=== PATIENT | male | born 1955 | race Two or more races ===

== ENCOUNTER 2024-12-12 21:22 | Inpatient (IN) | payer OTHER, MEDICAID ==
[~2024-12-12] VITALS: Ht 180.3 cm; Wt 70.6 kg
[2024-12-12 23:10] VITALS: BP 102/69; PULSE 87; RESP 18; TEMP 97.9; O2SAT 95
[2024-12-13] VITALS (9 sets, daily range): BP systolic 102–113; BP diastolic 62–85; PULSE 71–111; RESP 15–18; TEMP 97.4–99.3; O2SAT 91–96
[2024-12-13] MEDS ORDERED: LORazepam 2MG/ML-1ML VIAL IV PRN (11:45)
[2024-12-13] MEDS: HYDROcodone-ACET 5/325MG TAB PO PRN (11:50)
[2024-12-13 12:27] LABS: Hematocrit 43.3 % (41.0-53.0); Hemoglobin 14.3 g/dL (13.5-17.5); Mean Corpuscular Hemoglobin 32.1 pg (28.0-32.0); Mean Corpuscular Volume 97.5 fL (80.0-100.0); Nucleated Red Blood Cells % 0.0 %
[2024-12-13 13:39] LABS: Alanine Aminotransferase 21 U/L (7-40); Albumin 3.6 g/dL (3.2-4.8); Alkaline Phosphatase 47 U/L (46-116); Anion Gap 11 (5-15); BUN/Creatinine Ratio 6.3 (10.0-20.0); Bilirubin, Total 1.0 mg/dL (0.2-1.0); Carbon Dioxide 21 mmol/L (20-31); Potassium 4.0 mmol/L (3.5-5.1); Sodium 141 mmol/L (136-145); Total Protein 5.9 g/dL (5.7-8.2)
[2024-12-13 13:43] LABS: Blood Urea Nitrogen 6 mg/dL (9-23); Calcium 8.6 mg/dL (8.7-10.4); Chloride 109 mmol/L (98-107); Glucose 110 mg/dL (74-106)
[2024-12-13] MEDS ORDERED: NITROGLYCERIN 0.4 MG SL TAB SL PRN (17:00)
[2024-12-13] MEDS ORDERED: DOCUSATE SOD 100 MG CAP PO PRN (17:00)
[2024-12-13] MEDS ORDERED: MORPHINE SULFATE INJ 2 MG/ml SYRG IV PRN ×2 (17:00)
[2024-12-13] MEDS ORDERED: ACETAMINOPHEN 325 MG TAB PO PRN (17:00)
[2024-12-13] MEDS ORDERED: ONDANSETRON HCL 4 MG/2 ML VIAL IV PRN (17:00)
[2024-12-13] MEDS ORDERED: HYDROcodone-ACET 5/325MG TAB PO PRN (17:00)
[2024-12-13] MEDS ORDERED: HYDROcodone-ACET 10/325MG TAB PO PRN (17:15)
[2024-12-13] MEDS: RIVAROXABAN 20 MG TAB PO SCH (17:36)
[2024-12-13] MEDS: SODIUM CHLORIDE 0.9% 1,000 ML IV SCH (17:57)
[2024-12-14] VITALS (7 sets, daily range): BP systolic 112–126; BP diastolic 60–100; PULSE 70–96; RESP 15–20; TEMP 97.7–98.3; O2SAT 93–100
[2024-12-14 07:14] LABS: Hematocrit 37.5 % (41.0-53.0); Hemoglobin 13.2 g/dL (13.5-17.5); Mean Corpuscular Hemoglobin 32.9 pg (28.0-32.0); Mean Corpuscular Volume 93.6 fL (80.0-100.0); Nucleated Red Blood Cells % 0.1 %
[2024-12-14 07:25] LABS: Alanine Aminotransferase 19 U/L (7-40); Albumin 3.4 g/dL (3.2-4.8); Anion Gap 7 (5-15); BUN/Creatinine Ratio 9.1 (10.0-20.0); Bilirubin, Total 1.0 mg/dL (0.2-1.0); Carbon Dioxide 27 mmol/L (20-31); Glucose 92 mg/dL (74-106); Potassium 4.1 mmol/L (3.5-5.1); Sodium 144 mmol/L (136-145)
[2024-12-14 07:26] LABS: Alkaline Phosphatase 43 U/L (46-116); Blood Urea Nitrogen 9 mg/dL (9-23); Calcium 8.7 mg/dL (8.7-10.4); Chloride 110 mmol/L (98-107); Total Protein 5.4 g/dL (5.7-8.2)
[2024-12-14] MEDS: LEVOTHYROXINE SODIUM 50 MCG TAB PO SCH (09:12)
[2024-12-14] MEDS: METOPROLOL SUCCINATE XL 50 MG TAB PO SCH (09:12)
[2024-12-14] MEDS: ENOXAPARIN SOD 40 MG/0.4 ML SYRINGE SC SCH (09:13)
--- NOTE | 2024-12-14 19:47 | DVHINCON2 ---
Date of service: Dec 14, 2024 Referring Physician Reason for Consultation Seizure History of Present Illness Mr. Bang Estrada has a another chart in the [facility] [id number] Mr. Estrada is a right-handed male with a history of hypertension, hypothyroid disease, atrial fibrillation, chronic low back pain. He was transferred to the [facility] from [facility] on 12/12/24 with a chief complaint of seizure activity. At this time, he is alert and fully oriented, he he claimed that he woke up in the [facility], he did not know why and how he came to the [facility] I saw him on 06/19/2024 for seizure He tells me he woke up in the [facility], with injury to the right elbow, he was said to have seizure attack, he reported this was the 1st seizure since 06/2024, he takes Depakote 250 mg two capsules b.i.d. He has grand mal seizure since 2021, I saw him in office Keppra causes mood swinging, no answer. [id number], no answer Reports from my office EEG, 06/01/23 Normal EEG, 05/23/24: Normal 61-minute EEG CT head 04/04/23: Unremarkable CT head, 06/18/2024: No CT evidence of acute intracranial abnormality [facility] Plasma alcohol, 12/12/2024: Normal CT head, cervical spine, 11/25/2024: Chronic findings without CT evidence of acute intracranial or cervical spine pathology CBC, 12/13/2024: Unremarkable CMP, 12/13/2024: Unremarkable Past Medical History Hypertension, Depression, Thyroid gland problems, A fib Past Surgical History Three hernias, Left Testicle, pacemaker insertion (2022) Family History: Cardiovascular disease G8 FATHER, Seizure disorder G8 MOTHER, Family History Anxiety, Seizure, heart disease, Alcohol Social History Alcohol abuse, previous No history of drug abuse Smoking Status: Smoker He has stopped driving Allergies: Coded Allergies: NO KNOWN ALLERGIES (Unverified , 12/13/24) Home Meds Reported Medications Metoprolol Succinate (Metoprolol Succinate Er) 25 Mg Tab, 1 TAB PO DAILY, #30 TAB 5 Refills 12/13/24 Rivaroxaban (XARELTO) 20 Mg Tab, 1 TAB PO DAILY, #30 TAB 11 Refills 12/13/24 Divalproex Sodium (Depakote) 250 Mg Tab, 1 TAB PO BID, #60 TAB 2 Refills 12/13/24 Levothyroxine Sodium (SYNTHROID TABLET) 50 Mcg Tb, 1 TAB PO DAILY, #30 TAB 5 Refills 12/13/24 Current Medications Current Medications Medications (Trade) Dose Ordered Sig/Lukasz Route PRN Reason Start Time Stop Time Status Last Admin Divalproex Sodium (Depakote "Dr" Tablet) 250 mg BID PO 12/13/24 22:00 12/14/24 09:13 Levothyroxine Sodium (Synthroid Tablet) 50 mcg DAILY PO 12/14/24 10:00 12/14/24 09:12 Metoprolol Succinate (Toprol Xl) 25 mg DAILY PO 12/14/24 10:00 12/14/24 09:12 Enoxaparin Sodium (Lovenox) 40 mg DAILY SC 12/14/24 10:00 Hold Review of Systems As above, the other systems are negative Vital Signs Vital Signs Date Time Temp Pulse Resp B/P (MAP) Pulse Ox O2 Delivery O2 Flow Rate FiO2 12/14/24 17:17 97.9 96 20 119/75 (90) 94 97.9 12/14/24 08:00 Room Air* 0 21 Physical Exam GENERAL EXAM: General: the patient is well developed and nourished. No acute distress. HEENT: Normocephalic, neck is supple, no carotid bruits. No mass. RESPIRATORY: Normal respiratory effort with symmetrical lung expansion. Lungs clear to auscultation. CARDIOVASCULAR: Regular rate and rhythm with no murmurs. S1, S2. ABDOMEN: Soft, nontender, normal bowel sound NEUROLOGICAL: MENTAL STATUS: Awake and alert. Oriented to person, place, time and general circumstances. Able to give personal history. SPEECH, LANGUAGE, HIGHER CORTICAL FUNCTION: no aphasia or dysathria. CRANIAL NERVES: #2: Intact visual quarles to confrontation. The optic discs were sharp. #3,4,6: Pupils are equal, round and reactive. EOMs full and conjugate. #5: Facial sensation intact in all three divisions bilaterally. Mandibular strength intact. #7: Facial muscles symmetrical and strength intact. #8: Hearing grossly normal to voice. #9,10: Uvula and soft palate rise in the midline. Swallow and voice are normal. #11: Trapezius and sternomastoid strength intact bilaterally. #12: Tongue midline. No fasciculations or atrophy. SENSATION: Sensation to touch and pinprick is normal. MOTOR: Normal tone in the upper and lower extremity. Normal muscle bulk. No fasciculations. No abnormal movements or posturing. Muscle strength of the major groups in the upper extremities is 5/5. Muscle strength of the major groups in the lower extremities is 5/5. REFLEXES: Deep tendon reflexes nare symmetrical. No pathological reflexes. CEREBELLAR/COORDINATION: Finger to nose and heel to mazariegos are normal bilaterally. GAIT/STATION: deferred. Labs/Diagnostic Data Labs Test 12/14/24 06:24 Range/Units White Blood Count 6.2 # 4.4-10.8 10^3/uL Red Blood Count 4.01 L 4.5-5.90 10^6/uL Hemoglobin 13.2 L 13.5-17.5 g/dL Hematocrit 37.5 #L 41.0-53.0 % Mean Corpuscular Volume 93.6 80.0-100.0 fL Mean Corpuscular Hemoglobin 32.9 H 28.0-32.0 pg Mean Corpuscular Hemoglobin Concent 35.2 32.0-36.0 g/dL Red Cell Distribution Width 12.6 11.8-14.3 % Platelet Count 155 140-450 10^3/uL Mean Platelet Volume 7.9 6.9-10.8 fL Neutrophils (%) (Auto) 65.2 37.0-80.0 % Lymphocytes (%) (Auto) 17.5 10.0-50.0 % Monocytes (%) (Auto) 14.5 H 0.0-12.0 % Eosinophils (%) (Auto) 2.4 0.0-7.0 % Basophils (%) (Auto) 0.4 0.0-2.0 % Neutrophils # (Auto) 4.1 1.6-8.6 10 ^3/uL Lymphocytes # (Auto) 1.1 0.4-5.4 10 ^3/uL Monocytes # (Auto) 0.9 0-1.3 10 ^3/uL Eosinophils # (Auto) 0.1 0-0.8 10 ^3/uL Basophils # (Auto) 0 0-0.2 10 ^3/uL Nucleated Red Blood Cells 0.1 % Sodium Level 144 136-145 mmol/L Potassium Level 4.1 3.5-5.1 mmol/L Chloride Level 110 H 98-107 mmol/L Carbon Dioxide Level 27 20-31 mmol/L Anion Gap 7 5-15 Blood Urea Nitrogen 9 9-23 mg/dL Creatinine 0.99 0.700-1.30 mg/dL Glomerular Filtration Rate Calc 82 >90 mL/min BUN/Creatinine Ratio 9.1 L 10.0-20.0 Serum Glucose 92 74-106 mg/dL Calcium Level 8.7 8.7-10.4 mg/dL Total Bilirubin 1.0 0.2-1.0 mg/dL Aspartate Amino Transferase (AST) 25 13-40 U/L Alanine Aminotransferase (ALT) 19 7-40 U/L Alkaline Phosphatase 43 L 46-116 U/L Total Protein 5.4 L 5.7-8.2 g/dL Albumin 3.4 3.2-4.8 g/dL Assessment Grand mal seizure Seizure breakthrough Plan/Recommendation Monitoring Supportive treatment Telemetry Increase the Keppra to 750 mg b[address]i.d. He does not drive DVT prophylax GI prophylax More recommendation per clinical course Progress: Poor This medical document was created using an electronic medical record system with [employer] computerized dictation system. Although this document has been carefully reviewed, there may still be some phonetic and typographical errors. These areas are purely typographical due to imperfections of the software programs, and do not reflect any compromise in the patient's medical care. Plan discussed with: Patient, Other JS LORD MD Dec 14, 2024 19:47
[2024-12-15] VITALS (7 sets, daily range): BP systolic 112–133; BP diastolic 81–88; PULSE 68–102; RESP 17–20; TEMP 97.5–98.9; O2SAT 93–100
--- NOTE | 2024-12-15 12:46 | DVHHP2 ---
Admitting Diagnosis: seizure History of Present Illness HPI Mr. Estrada is a right-handed male with a history of hypertension, hypothyroid disease, atrial fibrillation, chronic low back pain. He was transferred to the [facility] from [facility] on 12/12/24 with a chief complaint of seizure activity. At this time, he is alert and fully oriented, he he claimed that he woke up in the [facility], he did not know why and how he came to the [facility] He tells me he woke up in the [facility], with injury to the right elbow, he was said to have seizure attack, he reported this was the 1st seizure since 06/2024, he takes Depakote 250 mg two capsules b.i.d. He has grand mal seizure since 2021, I saw him in office Keppra causes mood swinging, Home Meds Reported Medications Metoprolol Succinate (Metoprolol Succinate Er) 25 Mg Tab, 1 TAB PO DAILY, #30 TAB 5 Refills 12/13/24 Rivaroxaban (XARELTO) 20 Mg Tab, 1 TAB PO DAILY, #30 TAB 11 Refills 12/13/24 Divalproex Sodium (Depakote) 250 Mg Tab, 1 TAB PO BID, #60 TAB 2 Refills 12/13/24 Levothyroxine Sodium (SYNTHROID TABLET) 50 Mcg Tb, 1 TAB PO DAILY, #30 TAB 5 Refills 12/13/24 Past Medical History Patient Family History: Cardiovascular disease G8 FATHER, Seizure disorder G8 MOTHER, Review of Systems Constitutional: No symptom reported Pulmonary/Respiratory: No symptom reported Cardiovascular: No symptom reported Gastrointestinal: No symptom reported Genitourinary: No symptom reported H&P Exam Vital Signs Vital Signs Date Time Temp Pulse Resp B/P (MAP) Pulse Ox O2 Delivery O2 Flow Rate FiO2 12/15/24 08:57 68 133/77 12/15/24 08:47 98.8 20 97 98.8 12/15/24 08:00 Room Air* 0 21 General Appeara: Well developed Head Exam: Normal inspection Neck Exam: Normal inspection Abdominal Exam: Normal bowel sounds Pelvic Exam: Not done SEPSIS Sepsis Screen Vital Signs Date Time Temp Pulse Resp B/P (MAP) Pulse Ox O2 Delivery O2 Flow Rate FiO2 12/15/24 08:57 68 133/77 12/15/24 08:47 98.8 98 20 112/87 (95) 97 98.8 12/15/24 08:00 68 96 Room Air* 0 21 12/15/24 05:00 97.5 89 18 114/86 (95) 98 97.5 Labs/Xrays Labs Test 12/14/24 20:41 12/14/24 06:24 Range/Units Valproic Acid Level 20.5 L 50-100 ug/mL White Blood Count 6.2 # 4.4-10.8 10^3/uL Red Blood Count 4.01 L 4.5-5.90 10^6/uL Hemoglobin 13.2 L 13.5-17.5 g/dL Hematocrit 37.5 #L 41.0-53.0 % Mean Corpuscular Volume 93.6 80.0-100.0 fL Mean Corpuscular Hemoglobin 32.9 H 28.0-32.0 pg Mean Corpuscular Hemoglobin Concent 35.2 32.0-36.0 g/dL Red Cell Distribution Width 12.6 11.8-14.3 % Platelet Count 155 140-450 10^3/uL Mean Platelet Volume 7.9 6.9-10.8 fL Neutrophils (%) (Auto) 65.2 37.0-80.0 % Lymphocytes (%) (Auto) 17.5 10.0-50.0 % Monocytes (%) (Auto) 14.5 H 0.0-12.0 % Eosinophils (%) (Auto) 2.4 0.0-7.0 % Basophils (%) (Auto) 0.4 0.0-2.0 % Neutrophils # (Auto) 4.1 1.6-8.6 10 ^3/uL Lymphocytes # (Auto) 1.1 0.4-5.4 10 ^3/uL Monocytes # (Auto) 0.9 0-1.3 10 ^3/uL Eosinophils # (Auto) 0.1 0-0.8 10 ^3/uL Basophils # (Auto) 0 0-0.2 10 ^3/uL Nucleated Red Blood Cells 0.1 % Sodium Level 144 136-145 mmol/L Potassium Level 4.1 3.5-5.1 mmol/L Chloride Level 110 H 98-107 mmol/L Carbon Dioxide Level 27 20-31 mmol/L Anion Gap 7 5-15 Blood Urea Nitrogen 9 9-23 mg/dL Creatinine 0.99 0.700-1.30 mg/dL Glomerular Filtration Rate Calc 82 >90 mL/min BUN/Creatinine Ratio 9.1 L 10.0-20.0 Serum Glucose 92 74-106 mg/dL Calcium Level 8.7 8.7-10.4 mg/dL Total Bilirubin 1.0 0.2-1.0 mg/dL Aspartate Amino Transferase (AST) 25 13-40 U/L Alanine Aminotransferase (ALT) 19 7-40 U/L Alkaline Phosphatase 43 L 46-116 U/L Total Protein 5.4 L 5.7-8.2 g/dL Albumin 3.4 3.2-4.8 g/dL Assessment/Plan Primary Diagnosis recurrent seizure protein-calorie malnutrition hypothyroidism A-fib HTN admitted to mes/surg consult to neurology fall risk time: >45 minutes Plan discussed with: Patient Code Visit Code Visit Total Time (mins): 45 Date of Service: Dec 13, 2024 Billing Provider: VI DE DO Common Visit Codes: [id number] INP/OBS CARE (HIGH) VI DE DO Dec 15, 2024 12:46
--- NOTE | 2024-12-15 12:47 | DVHPN2 ---
Reviewed: Care Plan, H&P, Labs, Medications, Previous Orders, Radiology Changes from previous H/P or p: No Changes General: Per HPI Objective Vitals Vital Signs Date Time Temp Pulse Resp B/P (MAP) Pulse Ox O2 Delivery O2 Flow Rate FiO2 12/15/24 08:57 68 133/77 12/15/24 08:47 98.8 20 97 98.8 12/15/24 08:00 Room Air* 0 21 Intake/Output Intake and Output 12/15/24 07:00 Intake Total 1855 ml Balance 1855 ml Intake Oral 1255 ml IV Total 600 ml # Voids 10 General Appearance: Alert, Oriented X3, Cooperative HEENT: Atraumatic Lungs: Clear to auscultation Medications Current Medications Medications Dose Ordered Sig/Lukasz Route Start Time Stop Time Status Last Admin Dose Admin Acetaminophen/ Hydrocodone Bitart 1 tab Q6HPRN PRN PO 12/13/24 11:00 12/14/24 21:53 1 TAB Lorazepam 1 mg Q5MINP PRN IV 12/13/24 11:45 Levothyroxine Sodium 50 mcg DAILY PO 12/14/24 10:00 12/15/24 08:57 50 MCG Rivaroxaban 20 mg QPM PO 12/13/24 18:00 12/14/24 18:07 20 MG Metoprolol Succinate 25 mg DAILY PO 12/14/24 10:00 12/15/24 08:57 25 MG Sodium Chloride 1,000 ml @ 60 mls/hr [id number] IV 12/13/24 17:00 12/15/24 04:49 60 MLS/HR Acetaminophen/ Hydrocodone Bitart 1 tab Q4HP PRN PO 12/13/24 17:00 UNV Ondansetron HCl 4 mg Q4HP PRN IV 12/13/24 17:00 Docusate Sodium 100 mg BIDPRN PRN PO 12/13/24 17:00 Enoxaparin Sodium 40 mg DAILY SC 12/14/24 10:00 Hold Acetaminophen 650 mg Q6HP PRN PO 12/13/24 17:00 Morphine Sulfate 2 mg Q4HPRN PRN IV 12/13/24 17:00 Nitroglycerin 0.4 mg Q5MINP PRN SL 12/13/24 17:00 Morphine Sulfate 2 mg Q30M PRN IV 12/13/24 17:00 Divalproex Sodium 750 mg BID PO 12/14/24 20:30 12/15/24 08:57 750 MG Laboratory Results Laboratory Tests 12/14/24 06:24 Labs and/or images reviewed: Labs reviewed by me, Image(s) reviewed by me Assessment/Plan Assessment/Plan recurrent seizure protein-calorie malnutrition hypothyroidism A-fib HTN admitted to mes/surg consult to neurology fall risk time: >45 minutes Plan discussed with: Patient My Orders Orders - VI DE DO Procedure Category Date Status Time Cleanse Wound With LAKISHA 12/14/24 In Process Wound Clean 13:20 * Dietary Consult CONS 12/14/24 Transmitted 17:14 Date of Service: Dec 14, 2024 Billing Provider: VI DE DO Common Visit Codes: [id number] INP/OBS CARE(HIGH) VI DE DO Dec 15, 2024 12:47
--- NOTE | 2024-12-15 12:54 | DVHDS2 ---
Discharge Summary Date of Admission Dec 12, 2024 at 23:12 Date of Discharge: Dec 15, 2024 Labs/Diagnostic Data: Laboratory Results Test 12/14/24 20:41 12/14/24 06:24 Valproic Acid Level 20.5 ug/mL (50-100) White Blood Count 6.2 10^3/uL (4.4-10.8) Red Blood Count 4.01 10^6/uL (4.5-5.90) Hemoglobin 13.2 g/dL (13.5-17.5) Hematocrit 37.5 % (41.0-53.0) Mean Corpuscular Volume 93.6 fL (80.0-100.0) Mean Corpuscular Hemoglobin 32.9 pg (28.0-32.0) Mean Corpuscular Hemoglobin Concent 35.2 g/dL (32.0-36.0) Red Cell Distribution Width 12.6 % (11.8-14.3) Platelet Count 155 10^3/uL (140-450) Mean Platelet Volume 7.9 fL (6.9-10.8) Neutrophils (%) (Auto) 65.2 % (37.0-80.0) Lymphocytes (%) (Auto) 17.5 % (10.0-50.0) Monocytes (%) (Auto) 14.5 % (0.0-12.0) Eosinophils (%) (Auto) 2.4 % (0.0-7.0) Basophils (%) (Auto) 0.4 % (0.0-2.0) Neutrophils # (Auto) 4.1 10 ^3/uL (1.6-8.6) Lymphocytes # (Auto) 1.1 10 ^3/uL (0.4-5.4) Monocytes # (Auto) 0.9 10 ^3/uL (0-1.3) Eosinophils # (Auto) 0.1 10 ^3/uL (0-0.8) Basophils # (Auto) 0 10 ^3/uL (0-0.2) Nucleated Red Blood Cells 0.1 % Sodium Level 144 mmol/L (136-145) Potassium Level 4.1 mmol/L (3.5-5.1) Chloride Level 110 mmol/L (98-107) Carbon Dioxide Level 27 mmol/L (20-31) Anion Gap 7 (5-15) Blood Urea Nitrogen 9 mg/dL (9-23) Creatinine 0.99 mg/dL (0.700-1.30) Glomerular Filtration Rate Calc 82 mL/min (>90) BUN/Creatinine Ratio 9.1 (10.0-20.0) Serum Glucose 92 mg/dL (74-106) Calcium Level 8.7 mg/dL (8.7-10.4) Total Bilirubin 1.0 mg/dL (0.2-1.0) Aspartate Amino Transferase (AST) 25 U/L (13-40) Alanine Aminotransferase (ALT) 19 U/L (7-40) Alkaline Phosphatase 43 U/L (46-116) Total Protein 5.4 g/dL (5.7-8.2) Albumin 3.4 g/dL (3.2-4.8) Other Laboratory Tests 12/14/24 06:24 Brief Hx & Hospital Course: recurrent seizure protein-calorie malnutrition hypothyroidism A-fib HTN admitted to mes/surg consult to neurology fall risk d/c to home with keppra Condition at Discharge: Fair Final Diagnosis/Problems List see above Discharge Disposition: Home Discharge Instruct/Medications Diet: Cardiac 2g Na,low cholest Activity: No Restrictions, As Tolerated Scheduled Divalproex Sodium (Depakote), 1 TAB PO BID, (Reported) Divalproex Sodium (Divalproex Sodium Dr), 750 MG PO BID Levothyroxine Sodium (Synthroid Tablet), 1 TAB PO DAILY, (Reported) Metoprolol Succinate (Metoprolol Succinate Er), 1 TAB PO DAILY, (Reported) Rivaroxaban (Xarelto), 1 TAB PO DAILY, (Reported) Discharge Statement: "Patient was advised to return to the ER or call 911 if any headaches, dizziness, shortness of breath, chest pain, abdominal pain, bleeding, fevers, or worsening of medical condition. Patient was counseled about treatment plan, medications, possible side effects, patientverbalized understanding. All questions were answered to the best of my ability. This discharge took greater then 30 minutes in planning, reviewing documentation, counseling the patient, and discussing with other team members." ASSESSMENT ASSESSMENT Assessment VI DE DO Dec 15, 2024 12:54
--- NOTE | 2024-12-15 18:51 | DVHPN2 ---
"Progress Note - Dictate Date Seen: Dec 15, 2024 Medical Necessity Reason Pt with a Central, PICC or Fol: No Subjective Mr. Bang Estrada has a another chart in the [facility] [id number] Mr. Estrada is a right-handed male with a history of hypertension, hypothyroid disease, atrial fibrillation, chronic low back pain. He was transferred to the [facility] from [facility] on 12/12/24 with a chief complaint of seizure activity. I saw him on 06/19/2024 for seizure I have seen and examined the patient, I have talked to his nurse, family in the room. He is doing fine, no seizure activity, no new complaints, his fully oriented He is to be discharged home today Reports from my office EEG, 06/01/23 Normal EEG, 05/23/24: Normal 61-minute EEG CT head 04/04/23: Unremarkable CT head, 06/18/2024: No CT evidence of acute intracranial abnormality [facility] Plasma alcohol, 12/12/2024: Normal CT head, cervical spine, 11/25/2024: Chronic findings without CT evidence of acute intracranial or cervical spine pathology CBC, 12/13/2024: Unremarkable CMP, 12/13/2024: Unremarkable vital signs Vital Sign Date Time Temp Pulse Resp B/P (MAP) Pulse Ox O2 Delivery O2 Flow Rate FiO2 12/15/24 17:34 98.6 94 20 123/87 (99) 100 98.6 12/15/24 08:00 Room Air* 0 21 Total Intake and Output 12/14/24 12/14/24 12/15/24 15:00 23:00 07:00 Intake Total 400 ml 1455 ml Balance 400 ml 1455 ml medications Current Medications Medications Dose Ordered Sig/Lukasz Route Start Time Stop Time Status Last Admin Dose Admin Acetaminophen/ Hydrocodone Bitart 1 tab Q6HPRN PRN PO 12/13/24 11:00 12/14/24 21:53 1 TAB Lorazepam 1 mg Q5MINP PRN IV 12/13/24 11:45 Levothyroxine Sodium 50 mcg DAILY PO 12/14/24 10:00 12/15/24 08:57 50 MCG Rivaroxaban 20 mg QPM PO 12/13/24 18:00 12/15/24 17:23 20 MG Metoprolol Succinate 25 mg DAILY PO 12/14/24 10:00 12/15/24 08:57 25 MG Sodium Chloride 1,000 ml @ 60 mls/hr [id number] IV 12/13/24 17:00 12/15/24 04:49 60 MLS/HR Acetaminophen/ Hydrocodone Bitart 1 tab Q4HP PRN PO 12/13/24 17:00 UNV Ondansetron HCl 4 mg Q4HP PRN IV 12/13/24 17:00 Docusate Sodium 100 mg BIDPRN PRN PO 12/13/24 17:00 Enoxaparin Sodium 40 mg DAILY SC 12/14/24 10:00 Hold Acetaminophen 650 mg Q6HP PRN PO 12/13/24 17:00 Morphine Sulfate 2 mg Q4HPRN PRN IV 12/13/24 17:00 Nitroglycerin 0.4 mg Q5MINP PRN SL 12/13/24 17:00 Morphine Sulfate 2 mg Q30M PRN IV 12/13/24 17:00 Divalproex Sodium 750 mg BID PO 12/14/24 20:30 12/15/24 08:57 750 MG objective General: the patient is well developed and nourished. No acute distress. MENTAL STATUS: Subjective SPEECH, LANGUAGE, HIGHER CORTICAL FUNCTION: no aphasia or dysathria. CRANIAL NERVES: upils are equal, round and reactive. EOMs full and conjugate. Facial sensation intact in all three divisions bilaterally. Mandibular strength intact. Facial muscles symmetrical and strength intact. Tongue midline. No fasciculations or atrophy. SENSATION: Sensation to touch and pinprick is normal. MOTOR: Normal tone in the upper and lower extremity. Normal muscle bulk. No fasciculations. No abnormal movements or posturing. Muscle strength of the major groups in the extremities is 5/5. REFLEXES: Deep tendon reflexes nare symmetrical. No pathological reflexes. CEREBELLAR/COORDINATION: Finger to nose and heel to mazariegos are normal bilaterally. GAIT/STATION: deferred laboratory and microbiology Laboratory Tests 12/14/24 06:24 Test 12/14/24 06:24 Range/Units Serum Glucose 92 74-106 mg/dL Problem List Grand mal seizure Seizure breakthrough Assessment/Plan Monitoring Supportive treatment Telemetry Keppra 750 mg [address]i.d. He does not drive DVT prophylax GI prophylax More recommendation per clinical course This medical document was created using an electronic medical record system with [employer] dictation system. Although this document has been carefully reviewed, there may still be some phonetic and typographical errors. These areas are purely typographical due to imperfections of the software programs, and do not reflect any compromise in the patient's medical care. Prognosis poor Dietary Evaluation Review Comments: 1) Initiate MVI @ 1 tb qd 2) Advance to 2g Na diet when medically feasible 3) Encourage optimal PO intake 4) Follow-up with neurology 5) Continue to monitor I&O, labs, and skin integrity Expected Outcomes/Goals: 1) appetite and labs to improve 2) wound to improve 3) diet to advance 4) f/u in 3-5 days Plan discussed with: Patient, Other JS LORD MD Dec 15, 2024 18:51"
== END 2024-12-15 19:19 | disposition home or self-care (01) | DRG 101 ==
LOC: TELE-CENTR 23:12 → CENTRAL 12-13 18:14
PROVIDERS: ADMIT Internal Medicine; ATTEND Internal Medicine
DX: G40.409 Other generalized epilepsy and epileptic syndromes, not intractable, without status epilepticus (principal); E44.1 Mild protein-calorie malnutrition; E03.9 Hypothyroidism, unspecified; I10 Essential (primary) hypertension; F32.A Depression, unspecified; I48.91 Unspecified atrial fibrillation; F17.200 Nicotine dependence, unspecified, uncomplicated; G89.29 Other chronic pain; Z95.0 Presence of cardiac pacemaker; Z82.49 Family history of ischemic heart disease and other diseases of the circulatory system; Z82.0 Family history of epilepsy and other diseases of the nervous system; Z68.21 Body mass index [BMI] 21.0-21.9, adult; Z91.81 History of falling
CPT/HCPCS: 36415; 80053; 80164; 85025; 97163; G0378